=== PATIENT | female | born 1950 | race Caucasian/White ===

== ENCOUNTER 2016-08-07 18:21 | Emergency (ER) | payer BC ==
[~2016-08-07] VITALS: Ht 167.6 cm; Wt 68.0 kg
[~2016-08-07 18:21] MED LIST: AUGMENTIN875 MG PO; BIOFLEX TABLET1 EACH PO; CALCIUM 500 MG1 EACH PO; DULERA 100 MCG/13 GM IH; DULERA 200 MCG/13 GM IH; FLONASE16 G1 BOTH NARES; HYDROCODON-ACE1 EAC7 PO; LEVOCETIRIZINE D5 MG PO; LYRICA75 MG PO; MONTELUKAST SOD10 MG PO; PROAIR RESPICL90 MCG IH; VITAMIN D-32000 UNI2 PO
[2016-08-07] MEDS ORDERED: PERCOCET 5/31 TABLET PO (21:54)
[2016-08-07 22:20] VITALS: BP 117/59
== END 2016-08-07 22:21 | disposition home or self-care (01) ==
LOC: RME 18:21 → EME 18:21 → RME 22:21
DX: M54.5 Low back pain (principal); Z96.651 Presence of right artificial knee joint; G89.29 Other chronic pain; Z79.891 Long term (current) use of opiate analgesic; J45.909 Unspecified asthma, uncomplicated
CPT/HCPCS: 72220; 99281; 99283

== ENCOUNTER → 2017-06-22 | Outpatient (CLI) | payer OTHER, BC ==
[~2017-06-22] VITALS: Ht 165.1 cm; Wt 70.0 kg
[~2017-06-22] MED LIST changes: +ADVAIR 500/501 DISK IH; +ALBUTEROL2.5 MG/3 M IH; +AZELASTINE137 MCG/0. BOTH NARES; +MULTI-VITAMIN1 EAC4 PO; +PERCOCET 5/31 TABLET PO; +PROBIOTIC1 EAC1 PO; +PROTONIX40 MG PO; +SPIRIVA RESPIMAT4 GM IH; +XOLAIR150 MG SC; +ZITHROMAX250 MG PO
[2017-06-22 09:10] VITALS: BP 113/64
== END | disposition home or self-care (01) ==
LOC: IVINF 08:43
DX: M81.0 Age-related osteoporosis without current pathological fracture (principal); Z87.19 Personal history of other diseases of the digestive system
CPT/HCPCS: 96365; J3489

== ENCOUNTER 2017-12-03 10:05 | Emergency (ER) | payer OTHER, BC ==
[~2017-12-03] VITALS: Ht 165.1 cm; Wt 68.5 kg
[~2017-12-03 10:05] MED LIST changes: +MELOXICAM15 MG PO; +SUPER CALCIUM600 MG PO; +VITAMIN C1000 MG PO; +VITAMIN E400 UNIT PO
[2017-12-03 11:17] LABS: BASOPHIL (%) 0.6 % (0-1); BASOPHIL COUNT 0.1 K/uL (0-0.1); EOSINOPHIL (%) 2.2 % (0-5); EOSINOPHIL COUNT 0.2 K/uL (0-0.3); HEMATOCRIT 43.9 % (36.0-46.0); HEMOGLOBIN 14.5 G/DL (11.9-15.5); IMMATURE GRANULOCYTE (%) 0.6 % (0.0-0.7); LYMPHOCYTE (%) 15.2 % (15-42); LYMPHOCYTE COUNT 1.5 K/uL (1.0-2.8); MCH 32.2 PG (29.0-34.0); MCV 97.3 FL (83-99); MONOCYTE COUNT 0.8 K/uL (0-0.8); NEUTROPHIL (%) 73.4 % (45-76); PLATELET COUNT 301 K/uL (156-360); RBC DIS.WIDTH-CV 14.4 % (11.8-14.6); RBC DIS.WIDTH-SD 52.2 % (39-53); RED BLOOD COUNT 4.51 M/uL (3.80-5.20); WHITE BLOOD COUNT 9.6 K/uL (4.1-10.2)
[2017-12-03 11:28] LABS: CHLORIDE 104 mEq/L (99-109); POTASSIUM 4.1 mEq/L (3.7-5.4); SODIUM 139 mEq/L (136-147)
[2017-12-03 11:29] LABS: MAGNESIUM 2.7 mg/dL (1.3-2.7)
[2017-12-03 11:31] LABS: GLUCOSE 59 mg/dL (70-99); TOTAL PROTEIN 6.8 g/dL (6.4-8.3)
[2017-12-03 11:33] LABS: TOTAL BILIRUBIN 0.5 mg/dL (0.0-1.0)
[2017-12-03 11:34] LABS: ALKALINE PHOSPHATASE 81 IU/L (3-129)
[2017-12-03 11:35] LABS: CREATININE 0.7 mg/dL (0.6-1.3); GFR ESTIMATE (CALCULATED) > 59 mL/min/
[2017-12-03 11:36] LABS: AST (GOT) 21 IU/L (2-34); UREA NITROGEN (BUN) 19 mg/dL (9-23)
[2017-12-03 11:38] LABS: ALT (GPT) 18 IU/L (3-49)
[2017-12-03] MEDS ORDERED: PREDNISONE10 MG PO (12:26)
[2017-12-03] MEDS ORDERED: RECLAST5 MG/100 M IV (12:27)
[2017-12-03] MEDS ORDERED: SUPER B-50 COM1 EACH PO (12:27)
[2017-12-03] MEDS ORDERED: MUCINEX1200 MG PO (12:28)
[2017-12-03] MEDS ORDERED: GLUCOMETER MC (12:47)
[2017-12-03 13:05] LABS: APPEARANCE CLEAR ((CLEAR)); BILIRUBIN NEGATIVE; BLOOD NEGATIVE; COLOR STRAW ((YELLOW)); GLUCOSE (STRIP) NEGATIVE; KETONES NEGATIVE; LEUKOCYTES NEGATIVE; NITRITE NEGATIVE; PROTEIN (STRIP) NEGATIVE; SPECIFIC GRAVITY 1.005 (1.000-1.030); UCUL ADDED? NO; UROBILINOGEN 0.2 MG/DL (0.2-1.0)
[2017-12-03 14:07] VITALS: BP 123/73
== END 2017-12-03 14:10 | disposition home or self-care (01) ==
LOC: EME 10:05
PROVIDERS: Emergency Medicine
DX: E16.2 Hypoglycemia, unspecified (principal); R05 Cough; R53.83 Other fatigue; R35.0 Frequency of micturition; J45.909 Unspecified asthma, uncomplicated; Z79.52 Long term (current) use of systemic steroids
CPT/HCPCS: 71046; 80053; 81003; 82948; 83735; 85025; 93005; 99281; 99285

== ENCOUNTER → 2018-01-18 | Day surgery (SDC) | payer OTHER, BC ==
[~2018-01-18] MED LIST changes: +GLUCOMETER MC; +MUCINEX1200 MG PO; +PREDNISONE10 MG PO; +RECLAST5 MG/100 M IV; +SUPER B-50 COM1 EACH PO
[2018-01-18 13:14] LABS: SITE LRA
[2018-01-18 13:15] LABS: DEVICE RA; pH 7.41 (7.35-7.45)
[2018-01-18 13:16] LABS: BASE EXCESS 0.7 mEq/L (-3 to +3); BICARBONATE 25.4 mEq/L (22-26); CARBOXY HGB 1.6 % (0-5); METHEMOGLOBIN 0.9 % (0-1.5); O2 SATURATION (CALCULATED) 96.4 % (95-99); PCO2 40 mm Hg (35-45); PO2 68 mm Hg (80-100)
== END | disposition home or self-care (01) ==
LOC: RES 12:41
PROVIDERS: Thoracic Surgery (Cardiothoracic Vascular Surgery)
DX: J47.9 Bronchiectasis, uncomplicated (principal)
CPT/HCPCS: 36600